=== PATIENT | female | born 1970 | race Two or more races ===

== ENCOUNTER 2017-10-26 10:20 | Emergency (ER) | payer OTHER ==
[~2017-10-26] VITALS: Ht 152.4 cm; Wt 78.6 kg
[~2017-10-26 10:20] MED LIST: AMLO5TAB2 PO; CABE0.5T PO; HYDR12.58 PO; LEVO88TA2 PO; NORE5TAB PO; SERT50TA PO
[2017-10-26 10:22] VITALS: BP 139/88
[2017-10-26] MEDS ORDERED: FLUORESCEIN OPHTHALMIC 1 MG STRIP EACHEYE ONE (11:00)
[2017-10-26] MEDS ORDERED: PROPARACAINE OPHTH 0.5%, 15ML EACHEYE ONE (11:00)
[2017-10-26] MEDS ORDERED: FLUORESCEIN/BENOXINATE 5 ML DROPS OP ONE (11:00)
[2017-10-26] MEDS ORDERED: PROPARACAINE OPHTH 0.5%, 15ML ONE (11:05)
== END 2017-10-26 11:28 | disposition home or self-care (01) ==
LOC: ED 11:22
DX: H04.322 Acute dacryocystitis of left lacrimal passage (principal); I10 Essential (primary) hypertension; B02.9 Zoster without complications; F17.200 Nicotine dependence, unspecified, uncomplicated; R05 Cough; Z90.710 Acquired absence of both cervix and uterus
CPT/HCPCS: 99283

== ENCOUNTER → 2018-09-18 | Outpatient (CLI) | payer OTHER ==
[~2018-09-18] MED LIST changes: +AMLO-150 PO; -AMLO5TAB2 PO; -HYDR12.58 PO; +HYDROCHLOROTH12.5 MG PO
== END | disposition home or self-care (01) ==
LOC: ROC 07:26
PROVIDERS: ATTEND Radiology Radiation Oncology
DX: Z08 Encounter for follow-up examination after completed treatment for malignant neoplasm (principal); I10 Essential (primary) hypertension; E03.9 Hypothyroidism, unspecified; Z86.39 Personal history of other endocrine, nutritional and metabolic disease
CPT/HCPCS: 99214; G0463

== ENCOUNTER → 2018-09-30 | Outpatient (CLI) | payer OTHER ==
[~2018-09-30] MED LIST changes: +GADOBUTROL 7.5 MMOL/7.5 ML PFS ONE
== END | disposition home or self-care (01) ==
LOC: CFH 09:36
PROVIDERS: ATTEND Radiology Radiation Oncology
DX: D35.2 Benign neoplasm of pituitary gland (principal)
CPT/HCPCS: 70553; A9585

== ENCOUNTER → 2019-04-03 | Outpatient (CLI) | payer OTHER ==
[~2019-04-03] MED LIST changes: -GADOBUTROL 7.5 MMOL/7.5 ML PFS ONE
== END | disposition home or self-care (01) ==
LOC: ROC 07:59
PROVIDERS: ATTEND Radiology Radiation Oncology
DX: D35.2 Benign neoplasm of pituitary gland (principal); Z88.0 Allergy status to penicillin; F17.200 Nicotine dependence, unspecified, uncomplicated
CPT/HCPCS: 99213; G0463

== ENCOUNTER 2019-10-26 12:37 | Emergency (ER) | payer OTHER ==
[~2019-10-26] VITALS: Ht 152.4 cm; Wt 77.2 kg
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
--- NOTE | 2019-10-26 13:04 | NUR ---
BREAK RN: RUSTY RPT TO [facility].
--- NOTE | 2019-10-26 13:05 | NUR ---
REPORT FROM MIRIAN
--- NOTE | 2019-10-26 14:00 | NUR ---
PT RESTING. PT DENIES PAIN, FACIAL NUMBNESS STILL PRESENT. NO FURTHER NEEDS AT THIS TIME
--- NOTE | 2019-10-26 14:24 | NUR ---
dr geronimo spoke with dr sosa
--- NOTE | 2019-10-26 15:23 | NUR ---
PT TO MRI. IV ESTABLISHED
[2019-10-26] MEDS ORDERED: GADOTERATE 10 MMOL/20 ML SYR ONE (16:20)
[2019-10-26 16:39] VITALS: BP 131/79
--- NOTE | 2019-10-26 16:41 | NUR ---
Assumed care, pt to MRI at this time
--- NOTE | 2019-10-26 17:40 | NUR ---
Pt back from MRI, awaiting results.
--- NOTE | 2019-10-26 18:01 | NUR ---
Patient/Caregiver given discharge instructions and they have confirmed that they understand the instructions. Patient ambulatory with steady gait.
== END 2019-10-26 18:11 | disposition home or self-care (01) ==
LOC: ED 12:55
DX: R20.2 Paresthesia of skin (principal); R94.31 Abnormal electrocardiogram [ECG] [EKG]; I10 Essential (primary) hypertension; Z90.710 Acquired absence of both cervix and uterus; F17.200 Nicotine dependence, unspecified, uncomplicated
CPT/HCPCS: 70544; 70553; 93005; 99285; A9575

== ENCOUNTER → 2020-04-13 | Outpatient (CLI) | payer OTHER | END | disposition home or self-care (01) | LOC: ROC 07:12 | PROVIDERS: ATTEND Radiology Radiation Oncology | DX: Z08 Encounter for follow-up examination after completed treatment for malignant neoplasm (principal); D35.2 Benign neoplasm of pituitary gland | CPT/HCPCS: 99213; G0463 ==